=== PATIENT | female | born 1980 | race Caucasian/White ===

== ENCOUNTER 2021-08-07 08:34 | Day surgery (SDC) | payer OTHER, SELFPAY ==
[2021-08-05 10:58] LABS: BASOPHILS % (AUTO) 0.5 % (0.0-2.0); EOSINOPHILS # (AUTO) 0.1 K/uL (0.0-0.4); EOSINOPHILS % (AUTO) 0.7 % (0.0-4.0); HEMATOCRIT 42.2 % (36-48); HEMOGLOBIN 14.3 g/dL (12.0-16.0); LYMPHOCYTES % (AUTO) 21.8 % (20.5-51.5); MEAN CORPUSCULAR HEMOGLOBIN 32 pg (27-31); MEAN CORPUSCULAR HGB CONC 34 % (32-36); MEAN CORPUSCULAR VOLUME 95 fL (79.0-98.0); MONOCYTES # (AUTO) 0.6 K/uL (0.0-1.0); MONOCYTES % (AUTO) 6.6 % (1.7-9.3); NEUTROPHILS # (AUTO) 6.5 K/uL (1.8-7.7); NEUTROPHILS % (AUTO) 70.4 % (40.0-70.0); PLATELET COUNT (AUTO) 326 K/uL (130-430); RED BLOOD CELL COUNT(AUTO) 4.43 MIL/uL (4.2-6.2); RED CELL DISTRIBUTION WIDTH 13.4 % (9.0-15.0); WHITE BLOOD COUNT (AUTO) 9.2 K/uL (4.8-10.8)
[2021-08-05 11:21] LABS: ALBUMIN 3.9 g/dL (3.4-4.8); CALCIUM 9.1 mg/dL (8.4-11.0); CREATININE 0.83 mg/dL (0.55-1.30); POTASSIUM 3.9 mmol/L (3.5-5.1); TOTAL BILIRUBIN 0.8 mg/dL (0.0-1.0)
[~2021-08-07] VITALS: Ht 162.6 cm; Wt 72.1 kg
[2021-08-07] MEDS ORDERED: CEFAZOLIN SOD 2 GM in D5W 50 ML IV ONE (09:45)
[2021-08-07] MEDS ORDERED: ACETAMINOPHEN I.V. 1000 MG 100 ML IV ONE (12:34)
[2021-08-07] MEDS ORDERED: SIMETHICONE 80 MG TAB.CHEW PO PRN (13:45)
[2021-08-07] MEDS ORDERED: OXYCODONE/ACETAMINOPHEN 5-325 TABLET PO PRN ×2 (13:45)
[2021-08-07] MEDS ORDERED: ONDANSETRON HCL 4 MG/2 ML VIAL IVP PRN ×2 (13:45→14:00)
[2021-08-07] MEDS ORDERED: IBUPROFEN 800 MG TABLET PO PRN (13:45)
[2021-08-07] MEDS ORDERED: LR 1,000 ML IV.SOLN IV ONE (13:59)
[2021-08-07] MEDS ORDERED: ONDANSETRON HCL 4 MG/2 ML VIAL ONE (13:59)
[2021-08-07] MEDS ORDERED: NS 1000 ML IV.SOLN IV ONE (13:59)
[2021-08-07] MEDS ORDERED: SUCCINYLCHOLINE CHLORIDE 20 MG/ML(QUELICIN) ONE (13:59)
[2021-08-07] MEDS ORDERED: MIDAZOLAM HCL 5 MG/ML VIAL (VERSED) IV ONE (13:59)
[2021-08-07] MEDS ORDERED: DEXAMETHASONE SOD PHOSPHATE 4 MG/ML VIAL ONE (13:59)
[2021-08-07] MEDS ORDERED: KETOROLAC TROMETHAMINE 30 MG VIAL ONE ×2 (13:59→16:00)
[2021-08-07] MEDS ORDERED: NS IRRIG SOLN 1000 ML IR ONE (13:59)
[2021-08-07] MEDS ORDERED: BUPIVACAINE /EPINEPHRINE/PF 0.25% 30 ML VIAL INJ ONE (13:59)
[2021-08-07] MEDS ORDERED: SUGAMMADEX SODIUM 200 MG/2 ML VIAL IV ONE (13:59)
[2021-08-07] MEDS ORDERED: PROPOFOL 200MG/ 20ML VIAL (DIPRIVAN) IV ONE (13:59)
[2021-08-07] MEDS ORDERED: HYDROmorphone 2 MG/ML VIAL ONE (13:59)
[2021-08-07] MEDS ORDERED: METOCLOPRAMIDE HCL 10 MG/2 ML VIAL ONE (13:59)
[2021-08-07] MEDS ORDERED: DESFLURANE 15 MIN GAS INH ONE (13:59)
[2021-08-07] MEDS ORDERED: ROCURONIUM BROMIDE 10 MG/ML (ZEMURON) ONE (13:59)
[2021-08-07] MEDS ORDERED: WATER FOR IRRIGATION,STERILE 1,000 ML IRRIG.SOLN IR ONE (13:59)
[2021-08-07] MEDS ORDERED: HYDROmorphone 1 MG/ML INJ. CARTRIDGE IVP PRN ×2 (14:00)
[2021-08-07] MEDS ORDERED: HYDROmorphone 2 MG/ML VIAL IVP PRN (14:00)
[2021-08-07 16:19] VITALS: BP_SYST 110
== END 2021-08-07 17:30 | disposition home or self-care (01) ==
LOC: SDS 08:34 → SMU 08:46 → SDS 17:30
PROVIDERS: ATTEND Obstetrics & Gynecology
DX: N85.2 Hypertrophy of uterus (principal); D25.9 Leiomyoma of uterus, unspecified; N93.9 Abnormal uterine and vaginal bleeding, unspecified; N76.0 Acute vaginitis; G89.18 Other acute postprocedural pain; N72 Inflammatory disease of cervix uteri; Z79.01 Long term (current) use of anticoagulants; Z79.899 Other long term (current) drug therapy; Z20.822 Contact with and (suspected) exposure to COVID-19
CPT/HCPCS: 36415 ×3; 58573; 80053; 84702; 85025; 86886; 86900; 86901; 87426 ×2; 88307; C1727; C9399; J0131; J0330; J0690; J1100; J1170; J1885; J2250; J2405; J2704; J2765; J3490; J7030; J7060; J7120; E0190

== ENCOUNTER 2021-10-16 11:40 | Emergency (ER) | payer OTHER, SELFPAY ==
[~2021-10-16] VITALS: Ht 162.6 cm; Wt 68.9 kg
[2021-10-16 11:49] VITALS: BP_SYST 110
--- NOTE | 2021-10-16 11:49 | NUR ---
PT TRIAGED AND PLACED IN WAITING ROOM FOR AVAILBLE BED IN ER
--- NOTE | 2021-10-16 12:59 | NUR ---
Placed in room 4 . Placed on cardiac nurse specialist, blood pressure machine and pulse oximeter. To gown for exam. Side rails up. Report given to EDSON FREGOSO.
[2021-10-16] MEDS ORDERED: DIATR MEGLU/DIATRIZ SOD 30 ML SOLUTION PO ONE (14:47)
[2021-10-16 14:51] LABS: BILIRUBIN,URINE NEGATIVE (NEGATIVE); BLOOD, URINE NEGATIVE (NEGATIVE); CLARITY/URINE CLEAR (CLEAR); COLOR,URINE YELLOW (YELLOW); GLUCOSE,URINE NEGATIVE (NEGATIVE); KETONES,URINE TRACE (NEGATIVE); LEUKOCYTE ESTERASE ,URINE NEGATIVE (NEGATIVE); NITRITE, URINE NEGATIVE (NEGATIVE); PH,URINE 6.5 (5.0-8.0); PROTEIN URINE NEGATIVE (NEGATIVE); UROBILINOGEN,URINE 0.2 (0.2-1.0)
--- NOTE | 2021-10-16 15:17 | NUR ---
lab at bedside
[2021-10-16 15:39] LABS: BASOPHILS % (AUTO) 0.2 % (0.0-2.0); EOSINOPHILS % (AUTO) 0.2 % (0.0-4.0); HEMATOCRIT 42.2 % (36-48); HEMOGLOBIN 14.3 g/dL (12.0-16.0); LYMPHOCYTES # (AUTO) 1.9 K/uL (1.0-5.5); LYMPHOCYTES % (AUTO) 11.8 % (20.5-51.5); MEAN CORPUSCULAR HEMOGLOBIN 31 pg (27-31); MEAN CORPUSCULAR HGB CONC 34 % (32-36); MEAN CORPUSCULAR VOLUME 92 fL (79.0-98.0); MONOCYTES % (AUTO) 5.9 % (1.7-9.3); NEUTROPHILS # (AUTO) 13.3 K/uL (1.8-7.7); NEUTROPHILS % (AUTO) 81.9 % (40.0-70.0); PLATELET COUNT (AUTO) 348 K/uL (130-430); RED BLOOD CELL COUNT(AUTO) 4.59 MIL/uL (4.2-6.2); RED CELL DISTRIBUTION WIDTH 13.1 % (9.0-15.0); WHITE BLOOD COUNT (AUTO) 16.2 K/uL (4.8-10.8)
[2021-10-16] MEDS ORDERED: MAG HYDROX/AL HYDROX/SIMETH 30 ML, DICYCLOMINE HCL 20 MG, LIDOCAINE VISCOUS 2% 15ML (PO... PO ONE ×3 (16:00)
[2021-10-16 16:04] LABS: CALCIUM 9.2 mg/dL (8.4-11.0); CREATININE 0.88 mg/dL (0.55-1.30); POTASSIUM 3.6 mmol/L (3.5-5.1)
[2021-10-16] MEDS ORDERED: OMEP20CA15 PO (16:07)
[2021-10-16 16:11] VITALS: BP_SYST 127
--- NOTE | 2021-10-16 16:13 | NUR ---
Patient given written and verbal discharge instructions and verbalizes understanding. LISA muir MD discussed with patient the results and treatment provided. Patient in stable condition. ID arm band removed. Rx of prilosec given. Patient educated on pain management and to follow up with PMD. Pain Scale 2. Opportunity for questions provided and answered. Medication side effect fact sheet provided.
[2021-10-16 16:18] LABS: ALBUMIN 3.9 g/dL (3.4-4.8); TOTAL BILIRUBIN 1.1 mg/dL (0.0-1.0)
[2021-10-16 16:24] LABS: C-REACTIVE PROTEIN QUANT 4.4 mg/dL (0-0.5)
[2021-10-16 16:59] LABS: INR 0.9 (0.8-1.2); PROTHROMBIN TIME 9.7 SECS (9.5-12.5)
== END 2021-10-16 16:13 | disposition home or self-care (01) ==
LOC: SED 11:40
DX: K29.70 Gastritis, unspecified, without bleeding (principal); Z88.0 Allergy status to penicillin; Z88.2 Allergy status to sulfonamides; Z79.899 Other long term (current) drug therapy
CPT/HCPCS: 36415; 74176; 76376; 80053; 81003; 81025; 82150; 83605; 83690; 84703; 85025; 85610; 85730; 86140; 99284; J2001; Q9964

== ENCOUNTER 2022-02-24 12:58 | Outpatient (CLI) | payer OTHER ==
[~2022-02-24 12:58] MED LIST: OMEP20CA15 PO
== END 2022-02-24 20:20 | disposition home or self-care (01) ==
LOC: SCT 12:58
PROVIDERS: ATTEND Internal Medicine Gastroenterology
DX: K76.89 Other specified diseases of liver (principal)
CPT/HCPCS: 74178; 76376; Q9967

== ENCOUNTER 2022-02-27 10:15 | Day surgery (SDC) | payer OTHER ==
[2022-02-24 13:16] LABS: BASOPHILS % (AUTO) 0.3 % (0.0-2.0); EOSINOPHILS # (AUTO) 0.1 K/uL (0.0-0.4); EOSINOPHILS % (AUTO) 1.8 % (0.0-4.0); HEMATOCRIT 43.6 % (36-48); HEMOGLOBIN 14.8 g/dL (12.0-16.0); LYMPHOCYTES % (AUTO) 29.1 % (20.5-51.5); MEAN CORPUSCULAR HEMOGLOBIN 31 pg (27-31); MEAN CORPUSCULAR HGB CONC 34 % (32-36); MEAN CORPUSCULAR VOLUME 92 fL (79.0-98.0); MONOCYTES # (AUTO) 0.6 K/uL (0.0-1.0); MONOCYTES % (AUTO) 9.2 % (1.7-9.3); NEUTROPHILS # (AUTO) 4.1 K/uL (1.8-7.7); NEUTROPHILS % (AUTO) 59.6 % (40.0-70.0); PLATELET COUNT (AUTO) 320 K/uL (130-430); RED BLOOD CELL COUNT(AUTO) 4.75 MIL/uL (4.2-6.2); RED CELL DISTRIBUTION WIDTH 13.6 % (9.0-15.0); WHITE BLOOD COUNT (AUTO) 6.8 K/uL (4.8-10.8)
[2022-02-24 13:23] LABS: CALCIUM 9.4 mg/dL (8.4-11.0); CREATININE 0.89 mg/dL (0.55-1.30); POTASSIUM 4.3 mmol/L (3.5-5.1); TOTAL BILIRUBIN 0.8 mg/dL (0.0-1.0)
[~2022-02-27] VITALS: Ht 162.6 cm; Wt 70.3 kg
[2022-02-27 11:45] LABS: HCG,QUAL RESULT NEGATIVE (NEGATIVE)
[2022-02-27] MEDS ORDERED: BUPIVACAINE /EPINEPHRINE/PF 0.25% 30 ML VIAL INJ ONE (13:18)
[2022-02-27] MEDS ORDERED: LR 1,000 ML IV.SOLN IV ONE (13:18)
[2022-02-27] MEDS ORDERED: NS IRRIG SOLN 1000 ML IR ONE (13:18)
[2022-02-27] MEDS ORDERED: NEOSTIGMINE METHYLSULFATE 1 MG/ML, 10 ML VIAL ONE (13:18)
[2022-02-27] MEDS ORDERED: SUCCINYLCHOLINE CHLORIDE 20 MG/ML(QUELICIN) ONE (13:18)
[2022-02-27] MEDS ORDERED: fentaNYL CITRATE/PF 100 MCG/2 ML AMP ONE (13:18)
[2022-02-27] MEDS ORDERED: PROPOFOL 200MG/ 20ML VIAL (DIPRIVAN) IV ONE (13:18)
[2022-02-27] MEDS ORDERED: SEVOFLURANE 15 MIN GAS INH ONE (13:18)
[2022-02-27] MEDS ORDERED: GLYCOPYRROLATE 0.2 MG/ML VIAL ONE (13:18)
[2022-02-27] MEDS ORDERED: ROCURONIUM BROMIDE 10 MG/ML (ZEMURON) ONE (13:18)
[2022-02-27] MEDS ORDERED: KETOROLAC TROMETHAMINE 30 MG VIAL IVP PRN (13:45)
[2022-02-27] MEDS ORDERED: ONDANSETRON HCL 4 MG/2 ML VIAL IVP PRN ×2 (13:45→14:00)
[2022-02-27] MEDS ORDERED: HYDROmorphone 1 MG/ML INJ. CARTRIDGE IVP PRN (13:45)
[2022-02-27] MEDS ORDERED: MORPHINE 4 MG INJ. 4 MG/ML VIAL IVP PRN (14:00)
[2022-02-27] MEDS ORDERED: HYDROcodone/ACETAMIN 5-325 MG TAB (NORCO/ VICODIN) PO PRN (14:00)
[2022-02-27] MEDS ORDERED: ALBUTEROL SULFATE 0.083% 2.5 MG/3 ML VIAL.NEB INH ONE ×2 (14:11→14:15)
[2022-02-27] MEDS ORDERED: MIDAZOLAM HCL 5 MG/5 ML VIAL IVP PRN (14:15)
[2022-02-27] MEDS ORDERED: DEXAMETHASONE SOD PHOSPHATE 4 MG/ML VIAL ONE ×2 (14:23→14:24)
[2022-02-27] MEDS: MIDAZOLAM HCL 2 MG/2 ML VIAL (VERSED) ONE ×2 (14:26→14:45)
[2022-02-27] MEDS ORDERED: DEXAMETHASONE SOD PHOSPHATE 10 MG/ML VIAL IVP ONE (14:30)
[2022-02-27] MEDS ORDERED: KETOROLAC TROMETHAMINE 30 MG VIAL ONE (15:04)
[2022-02-27] MEDS ORDERED: HYDROmorphone 1 MG/ML INJ. CARTRIDGE ONE (15:13)
[2022-02-27 15:30] VITALS: BP_SYST 98
== END 2022-02-27 17:00 | disposition home or self-care (01) ==
LOC: SDS 10:15 → SMU 10:16 → SDS 17:00
PROVIDERS: ATTEND Surgery
DX: K64.8 Other hemorrhoids (principal); K62.89 Other specified diseases of anus and rectum; F41.9 Anxiety disorder, unspecified; Z88.0 Allergy status to penicillin; Z88.2 Allergy status to sulfonamides; Z79.899 Other long term (current) drug therapy
CPT/HCPCS: 36415 ×2; 46255; 71046; 80053; 84703; 85025; 87426; 87635; 88304; 93005; J0330; J1100; J1170; J1885; J2704; J2710; J3010; J3465; J3490 ×2; J7120; J7613